=== PATIENT | female | born 1935 | race Caucasian/White ===

== ENCOUNTER 2018-09-05 09:41 | Emergency (ER) | payer OTHER, MEDICAID ==
[~2018-09-05] VITALS: Ht 157.5 cm; Wt 64.0 kg
[2018-09-05] MEDS ORDERED: AMLO5TAB4 PO (09:51)
[2018-09-05] MEDS ORDERED: TEMA15CA5 PO (09:51)
[2018-09-05 10:49] VITALS: BP 161/71
== END 2018-09-05 11:44 | disposition home or self-care (01) ==
LOC: ER 09:41
DX: F41.1 Generalized anxiety disorder (principal); F43.0 Acute stress reaction; I10 Essential (primary) hypertension; Z91.14 Patient's other noncompliance with medication regimen
CPT/HCPCS: 99284